=== PATIENT | male | born 1990 | race American Indian/Alaskan Native ===

== ENCOUNTER 2020-11-12 04:11 | Emergency (ER) | payer OTHER ==
--- NOTE | 2020-11-12 06:53 | Cat Scan Report ---
CT head without contrast INDICATION : Right Mastoid tenderness after a fall down stairs. TECHNIQUE: Axial imaging performed from the skull apex through the skull base without the use of con trast. All CT scans at this location are performed using CT dose reduction for ALARA by means of aut omated exposure control. COMPARISON: None FINDINGS: Parenchyma: No acute intracranial hemorrhage or parenchymal abnormality. Ventricles: Ventricles are normal in size and appear symmetric. Soft tissues: Soft tissues including the orbits appear normal. Bones: No acute osseous abnormality. Sinuses: Sinuses and mastoid air cells are clear. IMPRESSION: No acute abnormality. Signer Name: Doc Workman MD Signed: 11/12/2020 6:48 AM Workstation Name: [id number]
--- NOTE | 2020-11-12 07:02 | XRay Report ---
Right shoulder-3 views INDICATION: Fell down stairs landed on right head,neck,shoulde. COMPARISON: None. IMPRESSION: No acute fracture identified. There is punctate hydroxyapatite deposition in the region of the rotator cuff footplate. Soft tissues are otherwise unremarkable. Normal alignment. No signi ficant DJD. Signer Name: Doc Workman MD Signed: 11/12/2020 6:57 AM Workstation Name: [id number]
--- NOTE | 2020-11-12 07:02 | XRay Report ---
Cervical spine-3 views INDICATION: Fell down 12-15 stairs and landed on neck. COMPARISON: None. IMPRESSION: Normal alignment. No significant discogenic DJD or facet arthropathy. No acute osseous or soft tissue abnormality. Signer Name: Doc Workman MD Signed: 11/12/2020 6:58 AM Workstation Name: [id number]
[2020-11-12] MEDS ORDERED: IBUPROFEN 800 MG TAB PO ONE (09:08)
--- NOTE | 2020-11-12 09:10 | Emergency Department Report ---
ED Fall HPI - General Chief Complaint: Fall Stated Complaint: FELL DOWN STAIRS CANT MOVE NECK WELL Time Seen by Provider: 11/12/20 09:02 Source: patient Mode of arrival: Ambulatory - History of Present Illness Initial Comments: 30 YO AA COMES TO ER SP [facility] LAST NIGHT. HE SLIPPED ON STEPS AND FELL. WITNESSED. NO LOC. AMBULATORY TO ER. 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 MD Complaint: fall -: Sudden Fall From: standing When Fall Occurred: other Place Fall Occurred: home Loss of Consciousness: none Prolonged Down Time?: no Severity: mild Context: tripped/slipped Associated Symptoms: denies - Related Data Allergies Allergy/AdvReac Type Severity Reaction Status Date / Time peanut Allergy Anaphylaxis Verified 11/12/20 06:07 ED Review of Systems ROS: Stated complaint: FELL DOWN STAIRS CANT MOVE NECK WELL Other details as noted in HPI Comment: All other systems reviewed and negative ED Past Medical Hx - Past Medical History Previous Medical History?: Yes Hx Diabetes: Yes Hx Asthma: Yes - Surgical History Past Surgical History?: No - Family History Family history: no significant - Social History Smoking Status: Never Smoker Substance Use Type: None ED Physical Exam - General Limitations: No Limitations General appearance: alert, in no apparent distress - Head Head exam: Present: atraumatic, normocephalic - Eye Eye exam: Present: normal appearance - ENT ENT exam: Present: mucous membranes moist - Neck Neck exam: Present: normal inspection - Respiratory Respiratory exam: Present: normal lung sounds bilaterally. Absent: respiratory distress - Cardiovascular Cardiovascular Exam: Present: regular rate, normal rhythm. Absent: systolic murmur, diastolic murmur, rubs, gallop - GI/Abdominal GI/Abdominal exam: Present: soft, normal bowel sounds - Rectal Rectal exam: Present: deferred - Extremities Exam Extremities exam: Present: normal inspection - Back Exam Back exam: Present: normal inspection - Neurological Exam Neurological exam: Present: alert, oriented X3 - Psychiatric Psychiatric exam: Present: normal affect, normal mood - Skin Skin exam: Present: warm, dry, intact, normal color. 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 ED Disposition Clinical Impression: Fall, Shoulder contusion Disposition: DC-01 TO HOME OR SELFCARE Is pt being admited?: No Does the pt Need Aspirin: No Condition: Stable Instructions: Contusion, [id number] Additional Instructions: ice rest elevate sling for 24 hours then remove motrin 800 mg by mouth every 8 hours for pain take with food follow up with Dr Gomez next week if pain persists referral below Referrals: CLAUDIA GOMEZ MD [Staff Physician] - 3-5 Days Forms: Work/School Release Form(ED) Time of Disposition: 09:09
[2020-11-12 09:42] VITALS: BP 123/79
== END 2020-11-12 09:42 | disposition home or self-care (01) ==
LOC: ED 04:11
DX: S40.011A Contusion of right shoulder, initial encounter (principal); E11.9 Type 2 diabetes mellitus without complications; J45.909 Unspecified asthma, uncomplicated; Z91.010 Allergy to peanuts; W01.0XXA Fall on same level from slipping, tripping and stumbling without subsequent striking against object, initial encounter; Y93.89 Activity, other specified; Y92.009 Unspecified place in unspecified non-institutional (private) residence as the place of occurrence of the external cause; Y99.8 Other external cause status
CPT/HCPCS: 70450; 72040

== ENCOUNTER 2020-11-17 19:29 | Emergency (ER) | payer OTHER ==
--- NOTE | 2020-11-18 00:51 | Emergency Department Report ---
ED General Adult HPI - General Chief complaint: Skin Rash Stated complaint: ALL OVER BODY RASH Time Seen by Provider: 11/18/20 00:31 Source: patient Mode of arrival: Ambulatory Limitations: No Limitations - History of Present Illness Initial comments: 30 y/o male pt w/ hx of atopic dermatitis presents to ED w/ complaints of a pruritic rash to his arms and legs starting two days ago. Pt states the rash began after he stayed at a family member's house in [place]. Suspects he may have come into direct contact with mildew. Took Benadryl and applied OTC eczema with limited relief. No new foods or medications. No new occupational exposures. Denies fever, chills, headache, neck stiffness, vomiting, mental status changes, abnormal bleeding/bruising, shortness of breath, wheezing. Denies all other complaints at this time. - Related Data Previous Rx's Medication Instructions Recorded Last Taken Type Hydrocortisone 1% [Hydrocortisone 1 applicatio TP TID #1 tube 11/18/20 Unknown Rx 1% CREAM] hydrOXYzine HCL [Atarax] 25 mg PO Q6HR PRN #20 tablet 11/18/20 Unknown Rx Allergies Allergy/AdvReac Type Severity Reaction Status Date / Time peanut Allergy Anaphylaxis Verified 11/12/20 06:07 ED Review of Systems ROS: Stated complaint: ALL OVER BODY RASH Other details as noted in HPI Other: GENERAL: Negative for fever, chills, weight change, anorexia, fatigue. ENT: Negative for ear pain, difficulty hearing, sore throat, nasal congestion, epistaxis. CARDIOVASCULAR: Negative for chest pain, palpitations, lower extremity swelling. PULMONARY: Negative for cough, dyspnea, wheezing, orthopnea, cyanosis. GASTROINTESTINAL: Negative for abdominal pain, nausea, vomiting, diarrhea, constipation. MUSCULOSKELETAL: Negative for joint pain, joint swelling, myalgias, back pain, neck pain. NEUROLOGICAL: Negative for headache, seizure, syncope, paresthesias, weakness. INTEGUMENTARY: Positive for rash. HEMATOLOGICAL: Negative for hemoptysis, hematemesis, hematochezia, hematuria. PSYCHIATRIC: Negative for hallucinations, suicidal ideation, homicidal ideation, anxiety, depression. ED Past Medical Hx - Past Medical History Previous Medical History?: Yes Hx Diabetes: Yes Hx Asthma: Yes - Surgical History Past Surgical History?: No - Social History Smoking Status: Never Smoker Substance Use Type: None - Medications Home Medications: Home Medications Medication Instructions Recorded Confirmed Last Taken Type Hydrocortisone 1% [Hydrocortisone 1 applicatio TP TID #1 tube 11/18/20 Unknown Rx 1% CREAM] hydrOXYzine HCL [Atarax] 25 mg PO Q6HR PRN #20 tablet 11/18/20 Unknown Rx ED Physical Exam - General Limitations: No Limitations - Other Other exam information: General: Awake, appropriately interactive, no acute distress. Neck: Supple. Full range of motion intact. Cardiovascular: Normal peripheral perfusion. Pulmonary: No respiratory distress. Patient is speaking normally without use of accessory muscles. Skin: Pruritic erythematous linear macular rash randomly distributed throughout the upper and lower extremities. No petechiae or purpura. Neurological: No facial asymmetry. Speech is clear. Follows commands. Patient is alert and oriented. Musculoskeletal: Moves all four extremities spontaneously with normal range of motion. Psych: Cooperative. Appropriate mood and affect. ED Course Vital Signs 11/17/20 21:44 Temperature 98.1 F Pulse Rate 91 H Respiratory 18 Rate Blood Pressure 121/77 [Right] O2 Sat by Pulse 99 Oximetry ED Medical Decision Making - Medical Decision Making Differential diagnosis including but not limited to: contact dermatitis, tinea corporis, Jara-Angel syndrome, toxic epidermal necrolysis, eczema, psoriasis The patient is alert and well appearing. There are no petichiae or purpura, no mucous membrane lesions, and no bullae. History and exam findings suggestive of contact dermatitis. Patient will be discharged home with prescription for antihistamines and topical steroids. The patient is without findings concerning for worrisome systemic illness requiring further treatment, additional testing, admission, or specialist consultation at this time. Additional testing is not indicated at this time, but should be considered if symptoms worsen or recur. Discussed findings, presumptive diagnosis, need for follow-up and specific signs/symptoms that should prompt immediate return to the emergency department. Instructions were explained in detail to the patient in addition to giving written discharge information. Patient expressed understanding and was given the opportunity to ask questions, all of which were satisfactorily answered prior to discharge home. Critical care attestation.: If time is entered above; I have spent that time in minutes in the direct care of this critically ill patient, excluding procedure time. ED Disposition Clinical Impression: Rash and nonspecific skin eruption Disposition: HOME / SELF CARE / HOMELESS Is pt being admited?: No Does the pt Need Aspirin: No Condition: Stable Instructions: Rash, Adult, [id number] Additional Instructions: Take Hydroxyzine as directed for itching. Use Hydrocortisone cream as directed for itching. Keep medication in the refrigerator for added symptomatic relief. Follow-up with primary care provider this week. Call tomorrow to schedule an appointment. See referral information below. Return to the emergency department immediately for new or worsening symptoms. Prescriptions: hydrOXYzine HCL [Atarax] 25 mg PO Q6HR PRN #20 tablet PRN Reason: Itching Hydrocortisone 1% [Hydrocortisone 1% CREAM] 1 applicatio TP TID #1 tube Referrals: GAMA ZABALA MD [Staff Physician] - 3-5 Days [facility] [Outside] - 3-5 Days [facility] [Outside] - 3-5 Days [facility] [Outside] - 3-5 Days [facility] [Provider Group] - 3-5 Days Time of Disposition: 00:56
[2020-11-18 06:00] VITALS: BP 138/85
== END 2020-11-18 01:35 | disposition home or self-care (01) ==
LOC: ED 19:29
DX: R21 Rash and other nonspecific skin eruption (principal); E11.9 Type 2 diabetes mellitus without complications; J45.909 Unspecified asthma, uncomplicated; Z79.899 Other long term (current) drug therapy; Z91.010 Allergy to peanuts

== ENCOUNTER 2021-10-26 14:06 | Inpatient (IN) | payer SELFPAY ==
[2021-10-26] MEDS ORDERED: HYDROmorphone 1 MG/1 ML INJ IV ONE (14:53)
[2021-10-26] MEDS ORDERED: dexAMETHasone 20 MG/5 ML VIAL IV ONE (14:53)
[2021-10-26] MEDS ORDERED: KETOROLAC 30 MG/1 ML INJ IV ONE (14:53)
[2021-10-26] MEDS ORDERED: FAMOTIDINE 20 MG/2 ML INJ IV ONE (14:54)
[2021-10-26] MEDS ORDERED: HYDROmorphone 1 MG/1 ML INJ IV PRN (15:21)
--- NOTE | 2021-10-26 16:02 | Magnetic Resonance Report ---
MRI LUMBAR SPINE 10/16/2021 INDICATION / CLINICAL INFORMATION: lower back pain, fecal incontinence. COMPARISON: None available. FINDINGS: GENERAL OBSERVATIONS: Unenhanced MR images of the lumbar spine were obtained. [id number] ANALYSIS: L5-S1: There is a prominent left paracentral disc herniation/extruded fragment, which results in impi ngement upon the left lateral recess, and likely compression of the traversing left S1 nerve root. Ne ural foramina are intact. L4-5: Unremarkable. L3-4: Unremarkable. L2-3: Unremarkable. L1-2: Unremarkable. BONE MARROW: No significant abnormality. Degenerative changes in the inferior endplate of L5. SPINAL CORD/CAUDA EQUINA: Unremarkable PARASPINAL SOFT TISSUES: No significant abnormality. IMPRESSION: Prominent left paracentral disc herniation/extruded fragment L5-S1. Signer Name: Deangelo Hancock MD Signed: 10/26/2021 3:58 PM Workstation Name: [id number]
--- NOTE | 2021-10-26 16:30 | Emergency Department Report ---
ED Back Pain/Injury HPI - General Chief Complaint: Back Pain/Injury Stated Complaint: LOWER BACK PAIN Time Seen by Provider: 10/26/21 14:43 Source: patient Limitations: No Limitations - History of Present Illness Initial Comments: 31-year-old male with a past medical history of noninsulin-dependent diabetes and asthma presents to the hospital with complaints of acute exacerbation of chronic lower back pain and left leg numbness. About 6 months ago patient fell down several stairs and has had back pain with intermittent left leg number since the initial injury. He was initially evaluated after fall but has not followed up as an outpatient for additional imaging and work-up. For the past 3 days patient has had worsening lower back pain which became more severe the past 2 days. Patient complains of numbness around his rectum with pain rating down his left leg. Patient had 1 episode of fecal incontinence and could not feel the sensation that he had to go to the bathroom. Patient denies symptoms of urinary retention or incontinence. Pain is too severe to ambulate - Related Data Previous Rx's Medication Instructions Recorded Last Taken Type Hydrocortisone 1% [Hydrocortisone 1 applicatio TP TID #1 tube 11/18/20 Unknown Rx 1% CREAM] hydrOXYzine HCL [Atarax] 25 mg PO Q6HR PRN #20 tablet 11/18/20 Unknown Rx Allergies Allergy/AdvReac Type Severity Reaction Status Date / Time peanut Allergy Anaphylaxis Verified 11/12/20 06:07 ED Review of Systems ROS: Stated complaint: LOWER BACK PAIN Other details as noted in HPI ED Past Medical Hx - Past Medical History Hx Diabetes: Yes Hx Asthma: Yes - Surgical History Past Surgical History?: No - Social History Smoking Status: Never Smoker - Medications Home Medications: Home Medications Medication Instructions Recorded Confirmed Last Taken Type Hydrocortisone 1% [Hydrocortisone 1 applicatio TP TID #1 tube 11/18/20 Unknown Rx 1% CREAM] hydrOXYzine HCL [Atarax] 25 mg PO Q6HR PRN #20 tablet 11/18/20 Unknown Rx ED Physical Exam - General Limitations: No Limitations - Other Other exam information: General: No acute distress Head: Atraumatic Eyes: normal appearance ENT: Moist mucous membranes Neck: Normal appearance, no midline tenderness Chest: Clear to auscultation bilaterally CV: Regular rate and rhythm Abdomen: Soft, normal bowel sounds, nontender, nondistended, no rebound or guarding Rectal: Rectal sensation grossly intact, good rectal tone Back: Normal inspection, generalized bilaterally midline lumbar tenderness with palpation. Positive left leg pain with straight leg raise Extremity: Normal inspection, limited hip flexion greater than 30 degrees secondary to pain Neuro: Alert O x 3, no facial asymmetry, speech clear, mild left hip flexion weakness and foot dorsiflexion weakness secondary to pain. Distal sensation to touch intact and equal bilaterally. Unable to elicit knee jerk and ankle jerk reflexes on either extremity due to patient discomfort and inability to relax Psych: Appropriate behavior Skin: No rash ED Course Vital Signs 10/26/21 14:20 Temperature 98.8 F Pulse Rate 94 H Respiratory 14 Rate Blood Pressure 135/85 O2 Sat by Pulse 100 Oximetry - Consultations Consultation #1: 10/26/21 17:09 case discussed with Brian Sheth neurosurgeon (reviewed images) he will evaluate patient during admission. Recommends pain control and physical therapy ED Medical Decision Making - Radiology Data Radiology results: report reviewed MRI LUMBAR SPINE 10/16/2021 INDICATION / CLINICAL INFORMATION: lower back pain, fecal incontinence. COMPARISON: None available. FINDINGS: GENERAL OBSERVATIONS: Unenhanced MR images of the lumbar spine were obtained. [id number] ANALYSIS: L5-S1: There is a prominent left paracentral disc herniation/extruded fragment, which results in impingement upon the left lateral recess, and likely compression of the traversing left S1 nerve root. Neural foramina are intact. L4-5: Unremarkable. L3-4: Unremarkable. L2-3: Unremarkable. L1-2: Unremarkable. BONE MARROW: No significant abnormality. Degenerative changes in the inferior endplate of L5. SPINAL CORD/CAUDA EQUINA: Unremarkable PARASPINAL SOFT TISSUES: No significant abnormality. IMPRESSION: Prominent left paracentral disc herniation/extruded fragment L5-S1. - Medical Decision Making 31-year-old male with acute on chronic back pain and left leg numbness presents to the hospital with acute exacerbation of pain and numbness. MRI confirms herniated disc. Patient did receive some relief for ED treatment but is still unable to sit up in the bed or ambulate. Case discussed with neurosurgery recommends admission for pain control and physical therapy. Labs ordered and pending at time of disposition Critical Care Time: No Critical care attestation.: If time is entered above; I have spent that time in minutes in the direct care of this critically ill patient, excluding procedure time. ED Disposition Clinical Impression: Lumbar disc herniation with radiculopathy, Intractable back pain, Diabetes Disposition: ADMITTED INPATIENT Is pt being admited?: Yes Condition: Stable Instructions: Diabetes Mellitus Type 2 in Adults (ED) Referrals: PRIMARY CARE, [Primary Care Provider] - 3-5 Days Time of Disposition: 17:49
[2021-10-26] MEDS ORDERED: ONDANSETRON 4 MG/2 ML INJ IV PRN (17:49)
[2021-10-26] MEDS ORDERED: ACETAMINOPHEN 325 MG TAB PO PRN (17:49)
[2021-10-26] MEDS ORDERED: MORPHINE 4 MG/1 ML INJ IV PRN (17:51)
[2021-10-26] MEDS ORDERED: MORPHINE 2 MG/1 ML INJ IV PRN (17:51)
[2021-10-26 18:05] LABS: Hematocrit 44.6 % (35.5-45.6); Hemoglobin 14.6 gm/dl (11.8-15.2); Mean Corpuscular HGB Conc 33 % (32-34); Mean Corpuscular Volume 82 fl (84-94); Platelet Count 161 K/mm3 (140-440); Red Blood Count 5.44 M/mm3 (3.65-5.03); Red Cell Distribution Width 13.6 % (13.2-15.2)
[2021-10-26 18:22] LABS: BUN/Creatinine Ratio 17; Blood Urea Nitrogen 17 mg/dL (9-20); Calcium 9.8 mg/dL (8.4-10.2); Hemolysis Index 65
[2021-10-26 19:02] LABS: Basophils % (Manual) 0 % (0.0-1.8); Eosinophils % (Manual) 0 % (0.0-4.3); Platelet Estimate Consistent w Auto; RBC Morphology Normal; Total Cells Counted 100
[2021-10-26] MEDS ORDERED: INSULIN REGULAR, HUMAN 100 UNITS/1 ML IV ONE (19:17)
--- NOTE | 2021-10-27 07:03 | History and Physical Report ---
History of Present Illness Date of examination: 10/26/21 Date of admission: 10/26/21 17:51 Chief complaint: Severe low back pain with radiation to the left lateral thigh for the last 6 months more so for the last 48 hours History of present illness: 31-year-old male with history of for type 2 diabetes which is uncontrolled had a fall about 6 months ago at work. Slipped and fell down 12 stairs. Since then has been having back pain and was treated as Workmen's Comp. Patient has been working. Over the last 48 hours pain has worsened and is about 10 on a scale of 1-10. Pain is radiating down the back of the thigh and also says that he is not able to lift left lower extremity against gravity. But able to move sideways. No urinary incontinence. No rectal incontinence. No saddle anesthesia. - Past Medical History --Diabetes: Yes --Asthma: Yes - Surgical History Past Surgical History?: No - Social History Smoking Status: Never Smoker - Medications Home Medications: Home Medications Medication Instructions Recorded Confirmed Last Taken Type Hydrocortisone 1% [Hydrocortisone 1 applicatio TP TID #1 tube 11/18/20 Unknown Rx 1% CREAM] hydrOXYzine HCL [Atarax] 25 mg PO Q6HR PRN #20 tablet 11/18/20 Unknown Rx Review of Systems ROS: Constitutional no weight loss or weight gain no fever or chills HEENT no sore throat no post nasal drip no diplopia Neck no neck stiffness no lymph gland enlargement Chest and lungs no shortness of breath cough or wheezing CVS no chest pain no diaphoresis no palpitations GI no nausea no vomiting no diarrhea Genitourinary system no dysuria no flank pain Musculoskeletal system severe low back pain with radiation of pain to the left back of the thigh [employer] no syncope no seizures Skin no rash no itching Psychiatric no depression no homicidal or suicidal tendencies Hematologic no lymphedema or bruising Endocrine no polydipsia no polyuria no cold intolerance no heat intolerance Medications and Allergies Allergies Allergy/AdvReac Type Severity Reaction Status Date / Time peanut Allergy Anaphylaxis Verified 11/12/20 06:07 Home Medications Medication Instructions Recorded Confirmed Last Taken Type Hydrocortisone 1% [Hydrocortisone 1 applicatio TP TID #1 tube 11/18/20 Unknown Rx 1% CREAM] hydrOXYzine HCL [Atarax] 25 mg PO Q6HR PRN #20 tablet 11/18/20 Unknown Rx Active Meds: Active Medications Acetaminophen (Acetaminophen 325 Mg Tab) 650 mg PO Q4H PRN PRN Reason: Pain MILD(1-3)/Fever >100.5/LMI Hydromorphone HCl (Hydromorphone 1 Mg/1 Ml Inj) 0.5 mg IV ONCE PRN PRN Reason: Pain , Severe (7-10) Morphine Sulfate (Morphine 2 Mg/1 Ml Inj) 2 mg IV Q4H PRN PRN Reason: Pain, Moderate (4-6) Morphine Sulfate (Morphine 4 Mg/1 Ml Inj) 4 mg IV Q4H PRN PRN Reason: Pain , Severe (7-10) Ondansetron HCl (Ondansetron 4 Mg/2 Ml Inj) 4 mg IV Q8H PRN PRN Reason: Nausea And Vomiting Sodium Chloride (Sodium Chloride 0.9% 10 Ml Flush Syringe) 10 ml IV BID JEOVANNY Last Admin: 10/27/21 05:27 Dose: Not Given Sodium Chloride (Sodium Chloride 0.9% 10 Ml Flush Syringe) 10 ml IV PRN PRN PRN Reason: LINE FLUSH Exam - Constitutional Vitals: Temp Pulse Resp BP Pulse Ox 97.3 F L 70 16 115/73 99 10/26/21 23:15 10/26/21 23:15 10/26/21 23:37 10/26/21 23:15 10/26/21 23:37 General appearance: Present: no acute distress, mild distress, well-nourished - EENT Eyes: Present: PERRL ENT: hearing intact, clear oral mucosa - Neck Neck: Present: supple, normal ROM - Respiratory Respiratory effort: normal Respiratory: bilateral: CTA - Cardiovascular Heart rate: 78 Rhythm: regular Heart Sounds: Present: S1 & S2. Absent: rub, click - Extremities Extremities: pulses symmetrical, No edema, abnormal (Left lower extremity str aight leg raise standing test positive.) Extremity abnormal: other (Same as above.) Peripheral Pulses: within normal limits - Abdominal General gastrointestinal: Present: soft, non-tender, non-distended, normal bowel sounds Male genitourinary: Present: normal - Integumentary Integumentary: Present: clear, warm, dry - Musculoskeletal Musculoskeletal: strength equal bilaterally, left sided weakness (Patient unable to lift his left lower extremity against gravity.) - Psychiatric Psychiatric: appropriate mood/affect, intact judgment & insight - Neurologic Neurologic: CNII-XII intact, moves all extremities Results - Labs CBC & Chem 7: 10/26/21 17:44 10/26/21 17:44 Labs: Laboratory Last Values WBC 14.8 K/mm3 (4.5-11.0) H 10/26/21 17:44 RBC 5.44 M/mm3 (3.65-5.03) H 10/26/21 17:44 Hgb 14.6 gm/dl (11.8-15.2) 10/26/21 17:44 Hct 44.6 % (35.5-45.6) 10/26/21 17:44 MCV 82 fl (84-94) L 10/26/21 17:44 MCH 27 pg (28-32) L 10/26/21 17:44 MCHC 33 % (32-34) 10/26/21 17:44 RDW 13.6 % (13.2-15.2) 10/26/21 17:44 Plt Count 161 K/mm3 (140-440) 10/26/21 17:44 Add Manual Diff Complete 10/26/21 17:44 Total Counted 100 10/26/21 17:44 Seg Neutrophils % Fine Sander 10/26/21 17:44 Seg Neuts % (Manual) 93.0 % (40.0-70.0) H 10/26/21 17:44 Band Neutrophils % 0 % 10/26/21 17:44 Lymphocytes % (Manual) 6.0 % (13.4-35.0) L 10/26/21 17:44 Reactive Lymphs % (Man) 0 % 10/26/21 17:44 Monocytes % (Manual) 1.0 % (0.0-7.3) 10/26/21 17:44 Eosinophils % (Manual) 0 % (0.0-4.3) 10/26/21 17:44 Basophils % (Manual) 0 % (0.0-1.8) 10/26/21 17:44 Metamyelocytes % 0 % 10/26/21 17:44 Myelocytes % 0 % 10/26/21 17:44 Promyelocytes % 0 % 10/26/21 17:44 Blast Cells % 0 % 10/26/21 17:44 Nucleated RBC % Not Reportable 10/26/21 17:44 Seg Neutrophils # Man 13.8 K/mm3 (1.8-7.7) H 10/26/21 17:44 Band Neutrophils # 0.0 K/mm3 10/26/21 17:44 Lymphocytes # (Manual) 0.9 K/mm3 (1.2-5.4) L 10/26/21 17:44 Abs React Lymphs (Man) 0.0 K/mm3 10/26/21 17:44 Monocytes # (Manual) 0.1 K/mm3 (0.0-0.8) 10/26/21 17:44 Eosinophils # (Manual) 0.0 K/mm3 (0.0-0.4) 10/26/21 17:44 Basophils # (Manual) 0.0 K/mm3 (0.0-0.1) 10/26/21 17:44 Metamyelocytes # 0.0 K/mm3 10/26/21 17:44 Myelocytes # 0.0 K/mm3 10/26/21 17:44 Promyelocytes # 0.0 K/mm3 10/26/21 17:44 Blast Cells # 0.0 K/mm3 10/26/21 17:44 WBC Morphology Not Reportable 10/26/21 17:44 Hypersegmented Neuts Not Reportable 10/26/21 17:44 Hyposegmented Neuts Not Reportable 10/26/21 17:44 Hypogranular Neuts Not Reportable 10/26/21 17:44 Smudge Cells Not Reportable 10/26/21 17:44 Toxic Granulation Not Reportable 10/26/21 17:44 Toxic Vacuolation Not Reportable 10/26/21 17:44 Dohle Bodies Not Reportable 10/26/21 17:44 Pelger-Huet Anomaly Not Reportable 10/26/21 17:44 Carly Rods Not Reportable 10/26/21 17:44 Platelet Estimate Consistent w auto 10/26/21 17:44 Clumped Platelets Not Reportable 10/26/21 17:44 Plt Clumps, EDTA Not Reportable 10/26/21 17:44 Large Platelets Not Reportable 10/26/21 17:44 Giant Platelets Not Reportable 10/26/21 17:44 Platelet Satelliting Not Reportable 10/26/21 17:44 Plt Morphology Comment Not Reportable 10/26/21 17:44 RBC Morphology Normal 10/26/21 17:44 Dimorphic RBCs Not Reportable 10/26/21 17:44 Polychromasia Not Reportable 10/26/21 17:44 Hypochromasia Not Reportable 10/26/21 17:44 Poikilocytosis Not Reportable 10/26/21 17:44 Anisocytosis Not Reportable 10/26/21 17:44 Microcytosis Not Reportable 10/26/21 17:44 Macrocytosis Not Reportable 10/26/21 17:44 Spherocytes Not Reportable 10/26/21 17:44 Pappenheimer Bodies Not Reportable 10/26/21 17:44 Sickle Cells Not Reportable 10/26/21 17:44 Target Cells Not Reportable 10/26/21 17:44 Tear Drop Cells Not Reportable 10/26/21 17:44 Ovalocytes Not Reportable 10/26/21 17:44 Helmet Cells Not Reportable 10/26/21 17:44 [place]olan-[place] Bodies Not Reportable 10/26/21 17:44 [place] Rings Not Reportable 10/26/21 17:44 Pope Cells Not Reportable 10/26/21 17:44 Bite Cells Not Reportable 10/26/21 17:44 Crenated Cell Not Reportable 10/26/21 17:44 Elliptocytes Not Reportable 10/26/21 17:44 Acanthocytes (Spur) Not Reportable 10/26/21 17:44 Rouleaux Not Reportable 10/26/21 17:44 Hemoglobin C Crystals Not Reportable 10/26/21 17:44 Schistocytes Not Reportable 10/26/21 17:44 Malaria parasites Not Reportable 10/26/21 17:44 Marito Bodies Not Reportable 10/26/21 17:44 Hem Pathologist Commnt No 10/26/21 17:44 Sodium 134 mmol/L (137-145) L 10/26/21 17:44 Potassium 5.3 mmol/L (3.6-5.0) H 10/26/21 17:44 Chloride 98.0 mmol/L (98-107) 10/26/21 17:44 Carbon Dioxide 24 mmol/L (22-30) 10/26/21 17:44 Anion Gap 17 mmol/L 10/26/21 17:44 BUN 17 mg/dL (9-20) 10/26/21 17:44 Creatinine 1.0 mg/dL (0.8-1.3) 10/26/21 17:44 Estimated GFR > 60 ml/min 10/26/21 17:44 BUN/Creatinine Ratio 17 % 10/26/21 17:44 Glucose 305 mg/dL (75-100) H 10/26/21 17:44 POC Glucose 311 mg/dL (70-105) H 10/26/21 23:04 Calcium 9.8 mg/dL (8.4-10.2) 10/26/21 17:44 Short CBC 10/26/21 Range/Units 17:44 WBC 14.8 H (4.5-11.0) K/mm3 Hgb 14.6 (11.8-15.2) gm/dl Hct 44.6 (35.5-45.6) % Plt Count 161 (140-440) K/mm3 BMP 10/26/21 17:44 Sodium 134 L Potassium 5.3 H Chloride 98.0 Carbon Dioxide 24 BUN 17 Creatinine 1.0 Glucose 305 H Calcium 9.8 - Imaging and Cardiology Imaging and Cardiology: Lumbar spine MRI There is a prominent left paracentral disc herniation/extruded fragment which results in impingement of the left lateral recess and likely compression of the traversing left S1 root. Neural foramina are intact. Moses/IV: Voiding Method Urinal Assessment and Plan Advance Directives: Yes (Full course) Plan of care discussed with patient/family: Yes - Patient Problems (1) Lumbar disc herniation with radiculopathy Current Visit: Yes Status: Acute Plan to address problem: Pain control Neurosurgery consulted (2) T2DM (type 2 diabetes mellitus) Current Visit: Yes Status: Chronic Qualifiers: Diabetes mellitus long-term insulin use: without long-term use Plan to address problem: Patient on oral metformin and glipizide 10 mg twice a day. Last A1c was 13. Patient needs to be on insulin. Patient initiated on Lantus 25 units subcu at bedtime and coverage. (3) Asthma Current Visit: Yes Status: Chronic Qualifiers: Asthma severity: mild Plan to address problem: Albuterol MDI as needed (4) DVT prophylaxis Current Visit: Yes Status: Acute Plan to address problem: On anticoagulation GI prophylaxis (5) Advance care planning Current Visit: Yes Status: Acute Plan to address problem: Disease education conducted, care plan discussed, diagnosis discussed, prognosis discussed and patient acknowledged understanding with the care plan. Care plan +30 minutes.
[2021-10-27] MEDS ORDERED: HYDROmorphone 1 MG/1 ML INJ IV PRN (07:06)
[2021-10-27] MEDS ORDERED: methylPREDNISolone Sod Succinate 125 MG/2 ML INJ IV SCH (08:00)
[2021-10-27] MEDS: INSULIN GLARGINE 100 UNITS/ML SUB-Q SCH (09:38)
[2021-10-27] MEDS: methylPREDNISolone Sod Succinate 40 MG/1 ML INJ IV SCH ×2 (09:39→17:22)
[2021-10-27] MEDS: metFORMIN 500 MG TAB PO SCH ×2 (09:39→17:22)
[2021-10-27] MEDS: INSULIN LISPRO 100 UNIT/ML SUB-Q SCH ×4 (09:40→23:26)
--- NOTE | 2021-10-27 11:20 | Progress Note ---
Assessment and Plan Assessment and plan: Chief complaint: Severe low back pain with radiation to the left lateral thigh for the last 6 months more so for the last 48 hours History of present illness: 31-year-old male with history of for type 2 diabetes which is uncontrolled had a fall about 6 months ago at work. Slipped and fell down 12 stairs. Since then has been having back pain and was treated as Workmen's Comp. Patient has been working. Over the last 48 hours pain has worsened and is about 10 on a scale of 1-10. Pain is radiating down the back of the thigh and also says that he is not able to lift left lower extremity against gravity. But able to move sideways. No urinary incontinence. No rectal incontinence. No saddle anesthesia. Hospital course 10/27: Awaiting PT assessment and NSG eval. Assessment and plan #Lumbar disc herniation with radiculopathy - back pain, sustained injury 6 mo ago, worsened in last 48hrs. Denies urinary/fecal incontinence, saddle anesthesia - MRI back: left paracentral disc herniation/extruded fragment L5-S1 - back brace - NSG consulted on admission, will follow for input - if no emergent surgical intervention, would recommend d/c home with PT and OP NSG followup #Type 2 Diabetes with Hyperglycemia - hemoglobin A1c: 13.6 - home regimen: metformin, glipezide. - current regimen: Moderate SSI, lantus 25 U subq daily, metformin - blood glucose goal 140-180 while inpatient - continue to monitor -discussed need #Asthma - albuterol MDI prn #Advance care planning Disease education conducted, care plan discussed, diagnoses discussed, prognosis discussed, patient is full code, patient acknowledges understanding and agree with care plan, +30 minutes. Disposition Plan: med/surg floor bed Total Time Spent with Patient (Minutes): 35 History Interval history: No acute complaints on encounter. States that pain intensity at it's worst is currently 4/10. PT bedside to work with patient. Hospitalist Physical - Physical exam Narrative exam: General appearance: Present: no acute distress, well-nourished - EENT Eyes: Present: PERRL ENT: hearing intact, clear oral mucosa - Neck Neck: Present: supple, normal ROM - Respiratory Respiratory effort: normal Respiratory: bilateral: CTA - Cardiovascular Heart rate: 78 Rhythm: regular Heart Sounds: Present: S1 & S2. Absent: rub, click - Extremities Extremities: pulses symmetrical, No edema, abnormal (Left lower extremity straight leg raise standing test positive.) Extremity abnormal: other (Same as above.) Peripheral Pulses: within normal limits - Abdominal General gastrointestinal: Present: soft, non-tender, non-distended, normal bowel sounds Male genitourinary: Present: normal - Integumentary Integumentary: Present: clear, warm, dry - Musculoskeletal Musculoskeletal: strength equal bilaterally, left sided weakness (Patient unable to lift his left lower extremity against gravity.) - Psychiatric Psychiatric: appropriate mood/affect, intact judgment & insight - Neurologic Neurologic: CNII-XII intact, moves all extremities - Constitutional Vitals: Temp Pulse Resp BP Pulse Ox 97.3 F L 70 16 115/73 99 10/26/21 23:15 10/26/21 23:15 10/26/21 23:37 10/26/21 23:15 10/26/21 23:37 General appearance: Present: no acute distress, mild distress, well-nourished Results - Labs CBC & Chem 7: 10/26/21 17:44 10/26/21 17:44 Labs: Laboratory Last Values WBC 14.8 K/mm3 (4.5-11.0) H 10/26/21 17:44 RBC 5.44 M/mm3 (3.65-5.03) H 10/26/21 17:44 Hgb 14.6 gm/dl (11.8-15.2) 10/26/21 17:44 Hct 44.6 % (35.5-45.6) 10/26/21 17:44 MCV 82 fl (84-94) L 10/26/21 17:44 MCH 27 pg (28-32) L 10/26/21 17:44 MCHC 33 % (32-34) 10/26/21 17:44 RDW 13.6 % (13.2-15.2) 10/26/21 17:44 Plt Count 161 K/mm3 (140-440) 10/26/21 17:44 Add Manual Diff Complete 10/26/21 17:44 Total Counted 100 10/26/21 17:44 Seg Neutrophils % Gold Stamper 10/26/21 17:44 Seg Neuts % (Manual) 93.0 % (40.0-70.0) H 10/26/21 17:44 Band Neutrophils % 0 % 10/26/21 17:44 Lymphocytes % (Manual) 6.0 % (13.4-35.0) L 10/26/21 17:44 Reactive Lymphs % (Man) 0 % 10/26/21 17:44 Monocytes % (Manual) 1.0 % (0.0-7.3) 10/26/21 17:44 Eosinophils % (Manual) 0 % (0.0-4.3) 10/26/21 17:44 Basophils % (Manual) 0 % (0.0-1.8) 10/26/21 17:44 Metamyelocytes % 0 % 10/26/21 17:44 Myelocytes % 0 % 10/26/21 17:44 Promyelocytes % 0 % 10/26/21 17:44 Blast Cells % 0 % 10/26/21 17:44 Nucleated RBC % Not Reportable 10/26/21 17:44 Seg Neutrophils # Man 13.8 K/mm3 (1.8-7.7) H 10/26/21 17:44 Band Neutrophils # 0.0 K/mm3 10/26/21 17:44 Lymphocytes # (Manual) 0.9 K/mm3 (1.2-5.4) L 10/26/21 17:44 Abs React Lymphs (Man) 0.0 K/mm3 10/26/21 17:44 Monocytes # (Manual) 0.1 K/mm3 (0.0-0.8) 10/26/21 17:44 Eosinophils # (Manual) 0.0 K/mm3 (0.0-0.4) 10/26/21 17:44 Basophils # (Manual) 0.0 K/mm3 (0.0-0.1) 10/26/21 17:44 Metamyelocytes # 0.0 K/mm3 10/26/21 17:44 Myelocytes # 0.0 K/mm3 10/26/21 17:44 Promyelocytes # 0.0 K/mm3 10/26/21 17:44 Blast Cells # 0.0 K/mm3 10/26/21 17:44 WBC Morphology Not Reportable 10/26/21 17:44 Hypersegmented Neuts Not Reportable 10/26/21 17:44 Hyposegmented Neuts Not Reportable 10/26/21 17:44 Hypogranular Neuts Not Reportable 10/26/21 17:44 Smudge Cells Not Reportable 10/26/21 17:44 Toxic Granulation Not Reportable 10/26/21 17:44 Toxic Vacuolation Not Reportable 10/26/21 17:44 Dohle Bodies Not Reportable 10/26/21 17:44 Pelger-Huet Anomaly Not Reportable 10/26/21 17:44 Carly Rods Not Reportable 10/26/21 17:44 Platelet Estimate Consistent w auto 10/26/21 17:44 Clumped Platelets Not Reportable 10/26/21 17:44 Plt Clumps, EDTA Not Reportable 10/26/21 17:44 Large Platelets Not Reportable 10/26/21 17:44 Giant Platelets Not Reportable 10/26/21 17:44 Platelet Satelliting Not Reportable 10/26/21 17:44 Plt Morphology Comment Not Reportable 10/26/21 17:44 RBC Morphology Normal 10/26/21 17:44 Dimorphic RBCs Not Reportable 10/26/21 17:44 Polychromasia Not Reportable 10/26/21 17:44 Hypochromasia Not Reportable 10/26/21 17:44 Poikilocytosis Not Reportable 10/26/21 17:44 Anisocytosis Not Reportable 10/26/21 17:44 Microcytosis Not Reportable 10/26/21 17:44 Macrocytosis Not Reportable 10/26/21 17:44 Spherocytes Not Reportable 10/26/21 17:44 Pappenheimer Bodies Not Reportable 10/26/21 17:44 Sickle Cells Not Reportable 10/26/21 17:44 Target Cells Not Reportable 10/26/21 17:44 Tear Drop Cells Not Reportable 10/26/21 17:44 Ovalocytes Not Reportable 10/26/21 17:44 Helmet Cells Not Reportable 10/26/21 17:44 Dolan-[place] Bodies Not Reportable 10/26/21 17:44 [place] Rings Not Reportable 10/26/21 17:44 [place] Cells Not Reportable 10/26/21 17:44 Bite Cells Not Reportable 10/26/21 17:44 Crenated Cell Not Reportable 10/26/21 17:44 Elliptocytes Not Reportable 10/26/21 17:44 Acanthocytes (Spur) Not Reportable 10/26/21 17:44 Rouleaux Not Reportable 10/26/21 17:44 Hemoglobin C Crystals Not Reportable 10/26/21 17:44 Schistocytes Not Reportable 10/26/21 17:44 Malaria parasites Not Reportable 10/26/21 17:44 Marito Bodies Not Reportable 10/26/21 17:44 Hem Pathologist Commnt No 10/26/21 17:44 Sodium 134 mmol/L (137-145) L 10/26/21 17:44 Potassium 5.3 mmol/L (3.6-5.0) H 10/26/21 17:44 Chloride 98.0 mmol/L (98-107) 10/26/21 17:44 Carbon Dioxide 24 mmol/L (22-30) 10/26/21 17:44 Anion Gap 17 mmol/L 10/26/21 17:44 BUN 17 mg/dL (9-20) 10/26/21 17:44 Creatinine 1.0 mg/dL (0.8-1.3) 10/26/21 17:44 Estimated GFR > 60 ml/min 10/26/21 17:44 BUN/Creatinine Ratio 17 % 10/26/21 17:44 Glucose 305 mg/dL (75-100) H 10/26/21 17:44 POC Glucose 242 mg/dL (70-105) H 10/27/21 07:23 Hemoglobin A1c 13.6 % (4-6) H 10/27/21 07:15 Calcium 9.8 mg/dL (8.4-10.2) 10/26/21 17:44 Moses/IV: Voiding Method Urinal Active Medications - Current Medications Current Medications: Generic Name Dose Route Start Last Admin Trade Name Freq PRN Reason Stop Dose Admin Acetaminophen 650 mg 10/26/21 17:49 Acetaminophen 325 Mg Tab PO Q4H PRN Pain MILD(1-3)/Fever >100.5/LIM Hydromorphone HCl 1 mg 10/27/21 07:06 Hydromorphone 1 Mg/1 Ml Inj IV Q3H PRN Pain , Severe (7-10) Insulin Glargine 25 units 10/27/21 10:00 10/27/21 09:38 Insulin Glargine 100 Units/Ml SUB-Q 25 units DAILY JEOVANNY Administration Insulin Human Lispro 0 unit 10/27/21 07:30 10/27/21 09:40 Insulin Lispro 100 Unit/Ml SUB-Q 4 unit ACHS JEOVANNY Administration Protocol Metformin HCl 500 mg 10/27/21 08:00 10/27/21 09:39 Metformin 500 Mg Tab PO 500 mg BIDDIAB JEOVANNY Administration Methylprednisolone Sodium Succinate 40 mg 10/27/21 08:00 10/27/21 09:39 Methylprednisolone Sod Succinate 40 Mg/1 Ml Inj IV 40 mg Q8H JEOVANNY Administration Morphine Sulfate 2 mg 10/26/21 17:51 10/27/21 09:39 Morphine 2 Mg/1 Ml Inj IV 2 mg Q4H PRN Administration Pain, Moderate (4-6) Ondansetron HCl 4 mg 10/26/21 17:49 Ondansetron 4 Mg/2 Ml Inj IV Q8H PRN Nausea And Vomiting Sodium Chloride 10 ml 10/26/21 22:00 10/27/21 09:40 Sodium Chloride 0.9% 10 Ml Flush Syringe IV 10 ml BID JEOVANNY Administration Sodium Chloride 10 ml 10/26/21 17:49 Sodium Chloride 0.9% 10 Ml Flush Syringe IV PRN PRN LINE FLUSH
--- NOTE | 2021-10-27 14:23 | Progress Note ---
Subjective Date of service: 10/27/21 Interval history: NSGY update: imaging studies reviewed. There is a moderate left paracentral disc herniation at L5-S1 that apparently compresses the traversing S1 nerve root. There is no role for urgent surgical intervention. Recommend PT consultation and multi-modal pain management. Patient is clear for discharge from my standpoint. We will contact him today to arrange for outatient follow up, this week if desired, for possible LESI. Please notify if questions or concerns. Objective - Vital Sign Vital Signs - 12hr 10/27/21 11:16 Temperature 98.0 F Pulse Rate 100 H Respiratory 18 Rate Blood Pressure 119/84 O2 Sat by Pulse 99 Oximetry - Laboratory Findings CBC and BMP: 10/26/21 17:44 10/26/21 17:44 Abnormal Lab Findings: Abnormal Labs 10/26/21 10/26/21 10/26/21 17:44 17:44 23:04 WBC 14.8 H RBC 5.44 H MCV 82 L MCH 27 L Seg Neuts % (Manual) 93.0 H Lymphocytes % (Manual) 6.0 L Seg Neutrophils # Man 13.8 H Lymphocytes # (Manual) 0.9 L Sodium 134 L Potassium 5.3 H Glucose 305 H POC Glucose 311 H Hemoglobin A1c 10/27/21 10/27/21 10/27/21 07:15 07:23 11:10 WBC RBC MCV MCH Seg Neuts % (Manual) Lymphocytes % (Manual) Seg Neutrophils # Man Lymphocytes # (Manual) Sodium Potassium Glucose POC Glucose 242 H 315 H Hemoglobin A1c 13.6 H
[2021-10-28] MEDS: methylPREDNISolone Sod Succinate 40 MG/1 ML INJ IV SCH ×2 (00:50→09:04)
--- NOTE | 2021-10-28 07:52 | Discharge Summary ---
Providers - Providers Date of Admission: 10/26/21 17:51 Date of discharge: 10/28/21 Attending physician: ALICIA DIETZ MD 10/26/21 16:32 Consult to Physician [CONS] Urgent Comment: Consulting Provider: RYAN KING II Physician Instructions: Reason For Exam: back pain, herniated disc 10/26/21 18:04 Physical Therapy Evaluation and Treat [CONS] Urgent Comment: Reason For Exam: herniated lumbar disc, pain, radiculopathy Primary care physician: [employer] Hospitalization Reason for admission: back pain Condition: Stable Hospital course: Chief complaint: Severe low back pain with radiation to the left lateral thigh for the last 6 months more so for the last 48 hours History of present illness: 31-year-old male with history of for type 2 diabetes which is uncontrolled had a fall about 6 months ago at work. Slipped and fell down 12 stairs. Since then has been having back pain and was treated as Workmen's Comp. Patient has been working. Over the last 48 hours pain has worsened and is about 10 on a scale of 1-10. Pain is radiating down the back of the thigh and also says that he is not able to lift left lower extremity against gravity. But able to move sideways. No urinary incontinence. No rectal incontinence. No saddle an esthesia. Hospital course 10/27: Awaiting PT assessment and NSG eval. 10/28: D/w Dr King, patient ok for discharge. No emergent indication for surgical intervention. He can follow up outpatient with Dr. King in his clinic, who will be reaching out to the patient to schedule for appointment. Will rx naprosyn and percocet for pain control. Will also rx lantus 25 units subq daily as well as diabetic supplies as patient will likely require insulin. Advised patient to continue meformin but discontinue glipizide. PT has recommended outpatient pt services, rolling walker. Will d/w CM. Discharge pending set up of [facility] PT. Assessment and plan #Lumbar disc herniation with radiculopathy - back pain, sustained injury 6 mo ago, worsened in last 48hrs. Denies urinary/fecal incontinence, saddle anesthesia - MRI back: left paracentral disc herniation/extruded fragment L5-S1 - back brace - NSG consulted on admission, no emergent need for surgery. Recommends pain control and will follow up with patient in OP clinic. - if no emergent surgical intervention, would recommend d/c home with PT and OP NSG followup #Type 2 Diabetes with Hyperglycemia - hemoglobin A1c: 13.6 - home regimen: metformin, glipezide. - current regimen: Moderate SSI, lantus 25 U subq daily, metformin - blood glucose goal 140-180 while inpatient - continue to monitor -discussed need #Asthma - albuterol MDI prn #Advance care planning Disease education conducted, care plan discussed, diagnoses discussed, prognosis discussed, patient is full code, patient acknowledges understanding and agree with care plan, +30 minutes. Disposition: 06 HOME HEALTH CARE SERVICE Final Discharge Diagnosis (Prints w/discharge instructions): lumbar disc herniation with radiculopathy Time spent for discharge: 35 Core Measure Documentation - Palliative Care Palliative Care/ Comfort Measures: Not Applicable - Core Measures Any of the following diagnoses?: none Exam - Physical Exam Narrative exam: General appearance: Present: no acute distress, well-nourished - EENT Eyes: Present: PERRL ENT: hearing intact, clear oral mucosa - Neck Neck: Present: supple, normal ROM - Respiratory Respiratory effort: normal Respiratory: bilateral: CTA - Cardiovascular Heart rate: 78 Rhythm: regular Heart Sounds: Present: S1 & S2. Absent: rub, click - Extremities Extremities: pulses symmetrical, No edema, abnormal (Left lower extremity straight leg raise standing test positive.) Extremity abnormal: other (Same as above.) Peripheral Pulses: within normal limits - Abdominal General gastrointestinal: Present: soft, non-tender, non-distended, normal bowel sounds Male genitourinary: Present: normal - Integumentary Integumentary: Present: clear, warm, dry - Musculoskeletal Musculoskeletal: strength equal bilaterally, left sided weakness (Patient unable to lift his left lower extremity against gravity.) - Psychiatric Psychiatric: appropriate mood/affect, intact judgment & insight - Neurologic Neurologic: CNII-XII intact, moves all extremities - Constitutional Vitals: Temp Pulse Resp BP Pulse Ox 98.6 F 69 17 112/69 100 10/27/21 16:11 10/27/21 16:11 10/28/21 07:03 10/27/21 16:11 10/28/21 07:03 Plan Follow up with: RHETT NESBITT MD [Primary Care Provider] - 3-5 Days GAMA ZABALA MD [Staff Physician] - 7 Days RYAN KING II, MD [Staff Physician] - 7 Days Prescriptions: Insulin Glargine,Hum.rec.anlog [Lantus Solostar] 25 unit SQ QAM 30 Days #1 box Naproxen [Naprosyn] 500 mg PO BID PRN 30 Days #60 tab PRN Reason: back pain Oxycodone HCl/Acetaminophen [Percocet 2.5/325 mg] 1 each PO Q6HR PRN 7 Days #28 tab PRN Reason: severe pain Other Discharge Orders: Glucometer (Amb) Location: None Selected Glucometer supplies[Amb] Location: None Selected
[2021-10-28 08:45] VITALS: BP 111/64
[2021-10-28] MEDS: INSULIN LISPRO 100 UNIT/ML SUB-Q SCH ×2 (09:03→12:35)
[2021-10-28] MEDS: INSULIN GLARGINE 100 UNITS/ML SUB-Q SCH (09:04)
[2021-10-28] MEDS: metFORMIN 500 MG TAB PO SCH (09:04)
[2021-10-28] MEDS ORDERED: SENNOSIDES 8.6 MG TAB PO PRN (09:58)
[2021-10-28] MEDS ORDERED: POLYETHYLENE GLYCOL 3350 17 GM POWDER PO PRN (09:58)
== END 2021-10-28 13:38 | disposition home or self-care (01) | DRG 552 ==
LOC: ED 14:06 → 3A 17:51
PROVIDERS: ADMIT Internal Medicine; ATTEND Internal Medicine
DX: M51.16 Intervertebral disc disorders with radiculopathy, lumbar region (principal); E11.9 Type 2 diabetes mellitus without complications; M54.9 Dorsalgia, unspecified; J45.909 Unspecified asthma, uncomplicated
CPT/HCPCS: 36415; 72148; 80048; 82962; 83036; 85007; 85025; G0378; J3490; Q9967; J1100; J1170; J1815; J1885; J2270; J2920